=== PATIENT | male | born 1965 | race Caucasian/White ===

== ENCOUNTER 2019-02-03 07:47 | Day surgery (SDC) | payer MEDICAID ==
[~2019-02-03] VITALS: Ht 175.3 cm; Wt 91.2 kg
[2019-02-03 08:26] VITALS: BP 149/100
[2019-02-03 12:08] VITALS: BP 124/79
== END 2019-02-03 12:00 | disposition home or self-care (01) ==
LOC: GI 07:47 → OR 11:30 → GI 12:00
DX: K63.5 Polyp of colon (principal); K57.30 Diverticulosis of large intestine without perforation or abscess without bleeding; I25.10 Atherosclerotic heart disease of native coronary artery without angina pectoris; E11.9 Type 2 diabetes mellitus without complications; I10 Essential (primary) hypertension; K25.9 Gastric ulcer, unspecified as acute or chronic, without hemorrhage or perforation; I63.9 Cerebral infarction, unspecified; G81.91 Hemiplegia, unspecified affecting right dominant side; E78.00 Pure hypercholesterolemia, unspecified; Z85.028 Personal history of other malignant neoplasm of stomach; Z79.82 Long term (current) use of aspirin; Z79.4 Long term (current) use of insulin; Z79.899 Other long term (current) drug therapy; Z86.19 Personal history of other infectious and parasitic diseases; Z85.020 Personal history of malignant carcinoid tumor of stomach; Z90.49 Acquired absence of other specified parts of digestive tract; Z90.3 Acquired absence of stomach [part of]
CPT/HCPCS: 45378; 82962; 88344; J1200; J1610; J2250; J2310; J3010; J3490